=== PATIENT | female | born 1940 | race Caucasian/White ===

== ENCOUNTER → 2018-05-30 | Day surgery (SDC) | payer MEDICARE ==
[~2018-05-30] MED LIST: HYDR50TA6 PO; IV RINGERS,LACTATED 1000ML 1,000 ML IV SCH; METO100T7 PO; PRAV20TA2 PO; PROPOFOL 20 ML IV ONE
[2018-05-30 14:51] VITALS: BP 143/83
== END | disposition home or self-care (01) ==
LOC: OPS 12:20 → EDSTATUS 13:00
PROVIDERS: ATTEND Internal Medicine Gastroenterology
DX: K57.30 Diverticulosis of large intestine without perforation or abscess without bleeding (principal); K64.0 First degree hemorrhoids; I10 Essential (primary) hypertension; E78.00 Pure hypercholesterolemia, unspecified; Z82.49 Family history of ischemic heart disease and other diseases of the circulatory system; Z79.899 Other long term (current) drug therapy; Z98.890 Other specified postprocedural states
CPT/HCPCS: 45378; J2704; J7120

== ENCOUNTER 2019-09-22 23:38 | Inpatient (IN) | payer MEDICARE ==
[~2019-09-22] VITALS: Ht 167.6 cm; Wt 93.7 kg
[~2019-09-22 23:38] MED LIST changes: -IV RINGERS,LACTATED 1000ML 1,000 ML IV SCH; -PROPOFOL 20 ML IV ONE
[2019-09-23] VITALS (22 sets, daily range): BP systolic 111–194; BP diastolic 62–103
--- NOTE | 2019-09-23 00:30 | NUR ---
Prior to admission, report was received from RN at [facility] ED and patient seemed very stable--had elevated BP when she arrived but was controlled by IVP medications and patient not on any drips. Dr. Ledesma and Dr. Chadwick paged. Dr Chadwick returned page first--he is familiar with this patient because he sees her outside of the hospital. Patient condition explained to Dr. Chadwick and order received to change admit order to CVC. Dr. Ledesma then called and stated that she wanted patient to be in ICU because she planned to start a Cardene gtt. Dr. Ledesma was informed that her pressures were being controlled by IVP medications at [facility], but she stated she wanted her in ICU. Patient to be admitted as ICU.
--- NOTE | 2019-09-23 01:00 | NUR ---
Patient arrived to room 105 via EMS gurney accompanied by paramedics x2 at 0035. Patient able to stand and ambulate to bed with fairly steady gait. Patient states pain is a 6 after getting up and walking to bed but that it is much improved from earlier at [facility]. Patient attached to ICU monitors--afib on the monitor with rate in 100s-130s. SBP stable in 110s-120s. Lungs CTA, pedal and radial pulses 2+ bilaterally. Patient slightly short of breath after ambulation. Patient ambulated to toilet and voided x1--standby assist. SCDs placed on patient. Patent IV x1 present but SL at this time. Oriented patient to unit routines, call light, bed controls, tv controls, activity (supervised). Patient very pleasant-states she will be a full code at this time but that she is going to talk to her about possibly changing it to a DNR and would like to talk with renal social worker more about it. Will call for further orders.
[2019-09-23] MEDS ORDERED: DILTIAZEM HCL 125 MG in IV NORMAL SALINE 100ML 100 ML IV PRN (02:00)
--- NOTE | 2019-09-23 03:00 | NUR ---
Page sent to Dr. Ledesma at 0100 and 0130. About 20 minutes later answering service paged to ask if she had returned our page. RN was connected to Dr. Ledesma via answering service. Updated on patient condition and orders received to start Cardizem gtt at 5 mg and titrate as needed to maintain HR <100, restart home medications, get CBC and BMP in AM, keep NPO after 7 am, consult cardiology in AM (not urgent), give Hydralazine 10 mg Q6PRN for SBP>170, and given Ativan 1 mg IVP Q4H PRN for anxiety (patient was anxious at [facility] because she has never stayed in the hospital before). Will place orders and continue to monitor patient.
[2019-09-23] MEDS ORDERED: LISI-334 PO (03:21)
[2019-09-23] MEDS ORDERED: CHLO50TA PO (03:21)
[2019-09-23 08:27] LABS: CALCIUM 8.6 mg/dL (8.5-10.1); CREATININE 0.9 mg/dL (0.6-1.0); GFR 60.4
[2019-09-23 08:41] LABS: BASO # 0.1 x10^3/uL (0.0-0.2); BASO % 1 % (0-3); EOS % 0 % (0-3); HEMATOCRIT 35.1 % (36.0-47.0); HEMOGLOBIN 11.7 g/dL (12.0-15.5); LYMPH # 1.6 x10^3/uL (1.0-4.8); LYMPH % 18 % (24-48); MEAN CORPUSCULAR HEMOGLOBIN 29 pg (25-35); MEAN CORPUSCULAR HGB CONC 33 g/dL (31-37); MEAN CORPUSCULAR VOLUME 88 fL (79-100); MONO # 0.6 x10^3/uL (0.0-1.1); MONO % 6 % (0-9); NEUT % 75 % (31-73); PLATELET COUNT 216 x10^3/uL (140-400); RED CELL DISTRIBUTION WIDTH 14.1 % (11.5-14.5); WHITE BLOOD COUNT 9.3 x10^3/uL (4.0-11.0)
[2019-09-23] MEDS ORDERED: CHLORTHALIDONE 25 MG TABLET. PO SCH (09:00)
[2019-09-23] MEDS ORDERED: POTASSIUM CHLORIDE 20 MEQ TABLET.ER. PO ONE (09:15)
--- NOTE | 2019-09-23 10:24 | PDOC2 ---
ALEXANDRIA MAYBERRY GASKET SUPERVISOR 09/23/19 1024: CARDIAC CONSULT DATE OF CONSULT Date of Consult DATE: 09/23/19 TIME: 10:22 REASON FOR CONSULT Reason for Consult: AFIB Hypertension REFERRING PHYSICIAN Referring Physician: Dr. Cristal Ledesma SOURCE Source: Chart review, Patient HISTORY OF PRESENT ILLNESS HISTORY OF PRESENT ILLNESS This is a 78 to female who initially presented to [facility] secondary to chest pain. Patient reports she had significant burning, pressure sensation in her central chest that began late yesterday evening. Was associated with diaphoresis. No palpitations, dizziness, SOA, or nausea/vomiting. Pain radiated down her left arm. No exacerbating or relieving factors. Pain persisted so she came to the ED for further evaluation and treatment. Was noted with AFIB with RVR, hypertensive urgency, hypokalemia with K of 2.5, and mild troponin elevation of 0.115. Decision was made to transfer patient to [facility] for higher level of care. Patient reports pain has improved, but has not completely resolved. PAST MEDICAL HISTORY Cardiovascular: HTN, Hyperlipidemia PAST SURGICAL HISTORY Past Surgical History: Tonsillectomy FAMILY HISTORY Family History: Cancer, Heart Disease (father ), Stroke SOCIAL HISTORY Smoke: No ALCOHOL: none Drugs: None Lives: with Family ALLERGIES ALLERGIES: Coded Allergies: No Known Drug Allergies (Unverified , 05/30/18) ROS Review of System 14 point ROS conducted with pertinent positives noted above in HPI PHYSICAL EXAM General: Alert, Oriented X3, Cooperative, No acute distress HEENT: Atraumatic, Mucous membr. moist/pink Lungs: Clear to auscultation, Normal air movement Heart: Regular rate Abdomen: Soft, No tenderness Extremities: Normal pulses, Other (trace bilateral LE edema ) Skin: No significant lesion Neuro: Normal speech, Sensation intact Psych/Mental Status: Mental status NL, Mood NL MUSCULOSKELETAL: No joint tenderness, Osteoarthritic changes both hands VITALS/I&O VITALS/I&O: Vital Signs Date Time Temp Pulse Resp B/P (MAP) Pulse Ox O2 Delivery O2 Flow Rate FiO2 09/23/19 08:12 Room Air 09/23/19 08:10 98.2 72 16 158/62 (94) 96 98.2 09/23/19 03:00 2.0 I & O 09/22/19 09/22/19 09/23/19 15:00 23:00 07:00 Output Total 0 ml Balance 0 ml LABS Lab: Laboratory Tests Test 09/23/19 04:50 White Blood Count 9.3 x10^3/uL (4.0-11.0) Red Blood Count 4.00 x10^6/uL (3.50-5.40) Hemoglobin 11.7 g/dL (12.0-15.5) L Hematocrit 35.1 % (36.0-47.0) L Mean Corpuscular Volume 88 fL (79-100) Mean Corpuscular Hemoglobin 29 pg (25-35) Mean Corpuscular Hemoglobin Concent 33 g/dL (31-37) Red Cell Distribution Width 14.1 % (11.5-14.5) Platelet Count 216 x10^3/uL (140-400) Neutrophils (%) (Auto) 75 % (31-73) H Lymphocytes (%) (Auto) 18 % (24-48) L Monocytes (%) (Auto) 6 % (0-9) Eosinophils (%) (Auto) 0 % (0-3) Basophils (%) (Auto) 1 % (0-3) Neutrophils # (Auto) 7.0 x10^3/uL (1.8-7.7) Lymphocytes # (Auto) 1.6 x10^3/uL (1.0-4.8) Monocytes # (Auto) 0.6 x10^3/uL (0.0-1.1) Eosinophils # (Auto) 0.0 x10^3/uL (0.0-0.7) Basophils # (Auto) 0.1 x10^3/uL (0.0-0.2) Sodium Level 142 mmol/L (136-145) Potassium Level 3.0 mmol/L (3.5-5.1) L Chloride Level 103 mmol/L (98-107) Carbon Dioxide Level 29 mmol/L (21-32) Anion Gap 10 (6-14) Blood Urea Nitrogen 22 mg/dL (7-20) H Creatinine 0.9 mg/dL (0.6-1.0) Estimated GFR (Cockcroft-Gault) 60.4 Glucose Level 109 mg/dL (70-99) H Calcium Level 8.6 mg/dL (8.5-10.1) Laboratory Tests 09/23/19 04:50 Laboratory Tests 09/23/19 04:50 ECHOCARDIOGRAM ECHOCARDIOGRAM <Conclusion> The left ventricular systolic function is normal and the ejection fraction is within normal range. The Ejection Fraction is >55%. There is normal LV segmental wall motion. Transmitral Doppler flow pattern is Grade II-pseudonormal filling dynamics. DATE: 04/23/18 1524 STRESS TEST STRESS TEST Conclusion 1. No EKG evidence of stressed induced ischemia. 2. Nuclear imaging shows no reversible ischemia or infarct. 3. Normal left ventricular systolic function with an ejection fraction of greater than 70%. 4. Low risk Lexiscan nuclear stress test. DATE: 11/21/18 1112 ASSESSMENT/PLAN ASSESSMENT/PLAN 1. Chest pain, typical features. 2. NSTEMI; initial trop at [facility] 0.115, repeat at 4.7 3. PAFIB with RVR; converted back to SR overnight 4. Hypertensive urgency; remains elevated 5. Ascending thoracic aneurysm 4.2 cm per CTA 09/27. Repeat chest CT at outside facility yesterday morning; reportedly stable. 6. Hypokalemia Recommendations Echo to assess LV systolic function ASA, statin Metoprolol for rate control Lipids, TSH NPO Given presentation in the setting of NSTEMI, recommend cardiac catheterization with possible angioplasty. R/b/a discussed with patient and family and they are agreeable to proceed. Will add case on for later today. Supportive care Will arrange outpatient event monitor to note AFIB burden, guide therapy Cardiac catheterization noted with 3V CAD with LM involvement. Cath report to follow. Will plan to transfer to [facility] for CTS consultation. ABEL FERNANDEZ MD 09/23/19 1933: CARDIAC CONSULT ASSESSMENT/PLAN ASSESSMENT/PLAN Patient seen and examined. Agree with TIRE ASSEMBLER's assessment and plan, Cardiac cath for NSTEMI showed 3v CAD including LMCA stenosis Discussed findings with [facility] CTS Plan for transfer to [facility] after w/u for possible CABG Continue hep gtt per protocol Titrate antihypertensives for better BP control [place] 2D echo to assess LVF and r/o valvular abnormalities Thank you for your consultation ALEXANDRIA MAYBERRY APRN Sep 23, 2019 10:24 ABEL FERNANDEZ MD Sep 23, 2019 19:33
[2019-09-23] MEDS: LISINOPRIL 20 MG TABLET PO SCH (11:06)
[2019-09-23] MEDS: METOPROLOL TART IMMED RELEASE 50 MG TABLET. PO SCH (11:11)
[2019-09-23 11:13] LABS: CHOLESTEROL/HDL RATIO 2.7
[2019-09-23] MEDS: ASPIRIN ENTERIC COATED 81 MG TABLET.DR. PO SCH (11:30)
--- NOTE | 2019-09-23 12:34 | NUR ---
SS following for discharge planning. SS reviewed pt chart and discussed with pt RN. Pt is from home with spouse and is currently on room air. 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 SS will continue to follow for discharge planning.
[2019-09-23] MEDS ORDERED: IOHEXOL 300 MG/ML 100ML VIAL. ONE ×2 (13:07→14:06)
[2019-09-23] MEDS ORDERED: LIDOCAINE 1% PF 2 ML VIAL. ONE (13:07)
--- NOTE | 2019-09-23 13:32 | NUR ---
Pt left for home performance laborer with RN and tech.
[2019-09-23] MEDS ORDERED: fentaNYL PF VIAL 100 MCG/2 ML VIAL ONE (13:35)
[2019-09-23] MEDS ORDERED: NITROGLYCERIN 200 MCG/2 ML SYRINGE FOR CATH/VASC LAB. ONE (13:35)
[2019-09-23] MEDS ORDERED: VERAPAMIL 5 MG/2 ML VIAL. ONE (13:35)
[2019-09-23] MEDS ORDERED: MIDAZOLAM HCL/PF 2 MG/2 ML VIAL. ONE (13:35)
[2019-09-23] MEDS ORDERED: HEPARIN for IV BOLUS 10,000 UNIT/10 ML VIAL. ONE (13:35)
[2019-09-23] MEDS ORDERED: NITROGLYCERIN 200 MCG/2 ML SYRINGE FOR CATH/VASC LAB. IART ONE (14:15)
[2019-09-23] MEDS ORDERED: LIDOCAINE 1% PF 2 ML VIAL. INJ ONE (14:15)
[2019-09-23] MEDS ORDERED: IOHEXOL 300 MG/ML 100ML VIAL. IART ONE (14:15)
[2019-09-23] MEDS ORDERED: VERAPAMIL 5 MG/2 ML VIAL. IART ONE (14:15)
[2019-09-23] MEDS ORDERED: fentaNYL PF VIAL 100 MCG/2 ML VIAL IV ONE (14:15)
[2019-09-23] MEDS ORDERED: HEPARIN for IV BOLUS 10,000 UNIT/10 ML VIAL. IART ONE (14:15)
[2019-09-23] MEDS ORDERED: MIDAZOLAM HCL/PF 2 MG/2 ML VIAL. IV ONE (14:15)
[2019-09-23] MEDS ORDERED: CONTRAST GIVEN. MC PRN (14:30)
[2019-09-23] MEDS ORDERED: HEPARIN for IV BOLUS 10,000 UNIT/10 ML VIAL. IV PRN (14:30)
[2019-09-23] MEDS ORDERED: 0.9 % SODIUM CHLORIDE 10 ML DISP.SYRIN. IV PRN (14:30)
--- NOTE | 2019-09-23 14:36 | PDOC1 ---
History and Physical Date of Admission Date of Admission DATE: 09/23/19 TIME: 14:27 Identification/Chief Complaint Problems: (1) Chest pain Source Source: Patient History of Present Illness History of Present Illness 78 F hx of HTN and HLD to female who initially presented to [facility] secondary to chest pain. reports she had significant burning, pressure sensation in her central chest that started yesterday around 830 pm . No exacerbating or relieving factors. Pain persisted so she came to the ED for further evaluation and treatment noted with AFIB with RVR SBP 170, hypokalemia with K of 2.5, and mild troponin elevation of 0.115. patient transferred to [facility] for further care. Past Medical History Cardiovascular: HTN, Hyperlipidemia Past Surgical History Past Surgical History: Tonsillectomy Family History Family History: Cancer, Heart Disease (father ), Stroke Social History Smoke: No ALCOHOL: none Drugs: None Current Medications Current Medications Current Medications Diltiazem HCl 125 mg/Sodium Chloride 125 ml @ 5 mls/hr CONT PRN IV SEE I/O RECORD; Start 09/23/19 at 02:00 Hydralazine HCl (Apresoline Inj) 10 mg PRN Q6HRS PRN IVP ELEVATED BP, SEE COMMENTS; Start 09/23/19 at 02:00 Lorazepam (Ativan Inj) 1 mg PRN Q4HRS PRN IVP ANXIETY / AGITATION; Start at 02:00 Metoprolol Tartrate (Lopressor) 100 mg DAILY PO Last administered on 09/23/19at 11:11; Start 09/23/19 at 09:00 Lisinopril (Prinivil) 20 mg DAILY PO Last administered on 09/23/19at 11:06; Start 09/23/19 at 09:00 Chlorthalidone (Thalitone) 25 mg DAILY PO ; Start 09/23/19 at 09:00 Atorvastatin Calcium (Lipitor) 5 mg HS PO ; Start 09/23/19 at 21:00 Potassium Chloride (Klor-Con) 40 meq 1X ONCE PO ; Start 09/23/19 at 09:15; Stop 09/23/19 at 09:23; Status DC Aspirin (Ecotrin) 81 mg DAILYWBKFT PO ; Start 09/23/19 at 11:30 Lidocaine HCl (Xylocaine-Mpf 1% 2ml Vial) 2 ml STK-MED ONCE .ROUTE ; Start 09/23/19 at 13:07; Stop 09/23/19 at 13:32; Status DC Heparin Sodium/ Sodium Chloride 500 ml @ As Directed STK-MED ONCE .ROUTE ; Start 09/23/19 at 13:07; Stop 09/23/19 at 13:32; Status DC Iohexol (Omnipaque 300 Mg/ml) 100 ml STK-MED ONCE .ROUTE ; Start 09/23/19 at 13:07; Stop 09/23/19 at 13:32; Status DC Fentanyl Citrate (Fentanyl 2ml Vial) 100 mcg STK-MED ONCE .ROUTE ; Start 09/23/19 at 13:35; Stop 09/23/19 at 13:35; Status DC Midazolam HCl (Versed) 2 mg STK-MED ONCE .ROUTE ; Start 09/23/19 at 13:35; Stop 09/23/19 at 13:35; Status DC Heparin Sodium (Porcine) (Heparin Sodium) 10,000 unit STK-MED ONCE .ROUTE ; Start 09/23/19 at 13:35; Stop 09/23/19 at 13:35; Status DC Verapamil HCl (Verapamil) 5 mg STK-MED ONCE .ROUTE ; Start 09/23/19 at 13:35; Stop 09/23/19 at 13:35; Status DC Nitroglycerin (Nitroglycerin) 200 mcg STK-MED ONCE .ROUTE ; Start 09/23/19 at 13:35; Stop 09/23/19 at 13:35; Status DC Iohexol (Omnipaque 300 Mg/ml) 100 ml STK-MED ONCE .ROUTE ; Start 09/23/19 at 14:06; Stop 09/23/19 at 14:06; Status DC Nitroglycerin (Nitroglycerin) 200 mcg 1X ONCE IART Last administered on 09/23/19at 14:15; Start 09/23/19 at 14:15; Stop 09/23/19 at 14:22; Status DC Verapamil HCl (Verapamil) 2.5 mg 1X ONCE IART Last administered on 09/23/19at 14:15; Start 09/23/19 at 14:15; Stop 09/23/19 at 14:22; Status DC Heparin Sodium (Porcine) (Heparin Sodium) 2,500 unit 1X ONCE IART Last administered on 09/23/19at 14:15; Start 09/23/19 at 14:15; Stop 09/23/19 at 14:22; Status DC Heparin Sodium/ Sodium Chloride (HEPARIN for ARTERIAL LINE FLUSH) 1,000 unit 1X ONCE IART Last administered on 09/23/19at 14:15; Start 09/23/19 at 14:15; Stop 09/23/19 at 14:22; Status DC Heparin Sodium/ Sodium Chloride (HEPARIN for ARTERIAL LINE FLUSH) 1,000 unit 1X ONCE IART Last administered on 09/23/19at 14:15; Start 09/23/19 at 14:15; Stop 09/23/19 at 14:22; Status DC Midazolam HCl (Versed) 2 mg 1X ONCE IV Last administered on 09/23/19at 14:15; Start 09/23/19 at 14:15; Stop 09/23/19 at 14:22; Status DC Fentanyl Citrate (Fentanyl 2ml Vial) 100 mcg 1X ONCE IV Last administered on 09/23/19at 14:15; Start 09/23/19 at 14:15; Stop 09/23/19 at 14:22; Status DC Iohexol (Omnipaque 300 Mg/ml) 100 ml 1X ONCE IART Last administered on 09/23/19at 14:15; Start 09/23/19 at 14:15; Stop 09/23/19 at 14:22; Status DC Lidocaine HCl (Xylocaine-Mpf 1% 2ml Vial) 2 ml 1X ONCE INJ Last administered on 09/23/19at 14:15; Start 09/23/19 at 14:15; Stop 09/23/19 at 14:22; Status DC Info (CONTRAST GIVEN -- Rx MONITORING) 1 each PRN DAILY PRN MC SEE COMMENTS; Start 09/23/19 at 14:30; Stop 09/25/19 at 14:29 Active Scripts Active Reported Lisinopril 20 Mg Tablet 1 Tab PO DAILY Chlorthalidone 50 Mg Tablet 25 Mg PO DAILY Pravastatin Sodium 20 Mg Tablet 1 Tab PO HS Metoprolol Tartrate 100 Mg Tablet 1 Tab PO DAILY Allergies Allergies: Coded Allergies: No Known Drug Allergies (Unverified , 05/30/18) ROS Review of System CONSTITUTIONAL: No fever or chills EYES: No recent changes SKIN: No rash or itching CARDIOVASCULAR: No chest pain, syncope, palpitations, or edema RESPIRATORY: No SOB or cough GASTROINTESTINAL: No nausea, vomiting or abdominal pain NEUROLOGICAL: No headaches or weakness ENDOCRINE: No cold or heat intolerance GENITOURINARY: No urgency or frequency of urination MUSCULOSKELETAL: No back pain or joint pain LYMPHATICS: No enlarged lymph nodes PSYCHIATRIC: No anxiety or depression Physical Exam Physical Exam GENERAL: No apparent distress. Alert and oriented. HEENT: Head normocephalic, atraumatic. NECK: Supple LUNGS: Clear to auscultation. HEART: RRR, S1, S2 present, pulses intact ABDOMEN: Soft, positive bowel sounds. EXTREMITIES: No cyanosis or edema. NEUROLOGIC: Normal speech, normal tone PSYCHIATRIC: Normal affect, normal mood. SKIN: No ulceration. Vitals Vitals Vital Signs Date Time Temp Pulse Resp B/P (MAP) Pulse Ox O2 Delivery O2 Flow Rate FiO2 09/23/19 14:24 75 25 94 Nasal Cannula 2.0 09/23/19 13:30 98.3 190/100 (130) 98.3 Labs Labs Laboratory Tests Test 09/23/19 04:50 White Blood Count 9.3 x10^3/uL (4.0-11.0) Red Blood Count 4.00 x10^6/uL (3.50-5.40) Hemoglobin 11.7 g/dL (12.0-15.5) Hematocrit 35.1 % (36.0-47.0) Mean Corpuscular Volume 88 fL (79-100) Mean Corpuscular Hemoglobin 29 pg (25-35) Mean Corpuscular Hemoglobin Concent 33 g/dL (31-37) Red Cell Distribution Width 14.1 % (11.5-14.5) Platelet Count 216 x10^3/uL (140-400) Neutrophils (%) (Auto) 75 % (31-73) Lymphocytes (%) (Auto) 18 % (24-48) Monocytes (%) (Auto) 6 % (0-9) Eosinophils (%) (Auto) 0 % (0-3) Basophils (%) (Auto) 1 % (0-3) Neutrophils # (Auto) 7.0 x10^3/uL (1.8-7.7) Lymphocytes # (Auto) 1.6 x10^3/uL (1.0-4.8) Monocytes # (Auto) 0.6 x10^3/uL (0.0-1.1) Eosinophils # (Auto) 0.0 x10^3/uL (0.0-0.7) Basophils # (Auto) 0.1 x10^3/uL (0.0-0.2) Sodium Level 142 mmol/L (136-145) Potassium Level 3.0 mmol/L (3.5-5.1) Chloride Level 103 mmol/L (98-107) Carbon Dioxide Level 29 mmol/L (21-32) Anion Gap 10 (6-14) Blood Urea Nitrogen 22 mg/dL (7-20) Creatinine 0.9 mg/dL (0.6-1.0) Estimated GFR (Cockcroft-Gault) 60.4 Glucose Level 109 mg/dL (70-99) Calcium Level 8.6 mg/dL (8.5-10.1) Magnesium Level 2.0 mg/dL (1.8-2.4) Troponin I Quantitative 4.527 ng/mL (0.000-0.055) Triglycerides Level 69 mg/dL (0-150) Cholesterol Level 188 mg/dL (0-200) LDL Cholesterol, Calculated 105 mg/dL (0-100) VLDL Cholesterol, Calculated 14 mg/dL (0-40) Non-HDL Cholesterol Calculated 119 mg/dL (0-129) HDL Cholesterol 69 mg/dL (40-60) Cholesterol/HDL Ratio 2.7 Thyroid Stimulating Hormone (TSH) 0.865 uIU/mL (0.358-3.74) Laboratory Tests Test 09/23/19 04:50 White Blood Count 9.3 x10^3/uL (4.0-11.0) Red Blood Count 4.00 x10^6/uL (3.50-5.40) Hemoglobin 11.7 g/dL (12.0-15.5) Hematocrit 35.1 % (36.0-47.0) Mean Corpuscular Volume 88 fL (79-100) Mean Corpuscular Hemoglobin 29 pg (25-35) Mean Corpuscular Hemoglobin Concent 33 g/dL (31-37) Red Cell Distribution Width 14.1 % (11.5-14.5) Platelet Count 216 x10^3/uL (140-400) Neutrophils (%) (Auto) 75 % (31-73) Lymphocytes (%) (Auto) 18 % (24-48) Monocytes (%) (Auto) 6 % (0-9) Eosinophils (%) (Auto) 0 % (0-3) Basophils (%) (Auto) 1 % (0-3) Neutrophils # (Auto) 7.0 x10^3/uL (1.8-7.7) Lymphocytes # (Auto) 1.6 x10^3/uL (1.0-4.8) Monocytes # (Auto) 0.6 x10^3/uL (0.0-1.1) Eosinophils # (Auto) 0.0 x10^3/uL (0.0-0.7) Basophils # (Auto) 0.1 x10^3/uL (0.0-0.2) Sodium Level 142 mmol/L (136-145) Potassium Level 3.0 mmol/L (3.5-5.1) Chloride Level 103 mmol/L (98-107) Carbon Dioxide Level 29 mmol/L (21-32) Anion Gap 10 (6-14) Blood Urea Nitrogen 22 mg/dL (7-20) Creatinine 0.9 mg/dL (0.6-1.0) Estimated GFR (Cockcroft-Gault) 60.4 Glucose Level 109 mg/dL (70-99) Calcium Level 8.6 mg/dL (8.5-10.1) Magnesium Level 2.0 mg/dL (1.8-2.4) Troponin I Quantitative 4.527 ng/mL (0.000-0.055) Triglycerides Level 69 mg/dL (0-150) Cholesterol Level 188 mg/dL (0-200) LDL Cholesterol, Calculated 105 mg/dL (0-100) VLDL Cholesterol, Calculated 14 mg/dL (0-40) Non-HDL Cholesterol Calculated 119 mg/dL (0-129) HDL Cholesterol 69 mg/dL (40-60) Cholesterol/HDL Ratio 2.7 Thyroid Stimulating Hormone (TSH) 0.865 uIU/mL (0.358-3.74) VTE Prophylaxis Ordered VTE Prophylaxis Devices: Yes VTE Pharmacological Prophylaxi: Yes Assessment/Plan Assessment/Plan ASSESSMENT Chest pain NSTEMI PAFIB with RVR Hypertensive urgency Ascending thoracic aneurysm Hypokalemia PLAN check TTE ASA, statin Metoprolol for rate control LABS INCLUDING TSH AND LIPIDS NPO FOR [facility] TODAY CARDS CONSULT NOW BACK IN SR FOLLOW TROPS ANEURISM 4.2 cm per CTA 09/27. Repeat chest CT at outside facility yesterday morning; reportedly stable. can likely transfer out to tele bed later today if stable Justicifation of Admission Dx: Justifications for Admission: Justification of Admission Dx: Yes Angina: [facility] AKIN HUNTER MD Sep 23, 2019 14:36
[2019-09-23] MEDS: HEPARIN 25,000UTS/250ML PREMIX 250 ML IV PRN (14:56)
--- NOTE | 2019-09-23 15:01 | PDOC ---
MODERATE SEDATION ASSESSMENT RISKS/ALTERNATIVES Risks/Alternatives Risks and alternatives of this type of sedation and procedure discussed with: RISK/ALTERNATIVES: Patient H & P ON CHART H & P H & P on chart and reviewed for co-morbid conditions and appropriate labs. H&P ON CHART: Yes STATUS PREG STATUS ASSESSED: N/A MEDS/ALLERGIES REVIEWED Meds/Allergies Reviewed Medications and Allergies including time and route of recently administered narcotics and sedatives. MEDS/ALLERGIES REVIEWED: Yes ASA RATING ASA RATING: III AIRWAY ASSESSMENT Airway Assessment Airway patency, oral function limitations, presence of caps, crowns, dentures, partials, and ability to extend neck assessed. AIRWAY ASSESSMENT: Yes MALLAMPATI SCORE MALLAMPATI SCORE: II PRE-SEDATION ASSESSMENT PRE-SEDATION ASSESSMENT: Yes ABEL FERNANDEZ MD Sep 23, 2019 15:01
--- NOTE | 2019-09-23 15:06 | CARD ---
MR#: [id number] Date of Study: 09/23/2019 Ordering Physician: ALEXANDRIA MAYBERRY, Referring Physician: ALEXANDRIA MAYBERRY, Tech: Mercy Ryder APPROVED REPORT Technologist: Mercy Ryder Nurse: Jessica Villalta Procedure(s) performed: Left heart catheterization, selective coronary angiography via right transrad ial approach fl time: 7.6 min dose: 65 gycm2 contrast: 115 ml moderate sedation: 35 mins INDICATION The indication(s) include : non-STEMI . CSHA Clinical Frailty Scale CS Clinical Frailty Scale: Mildly Frail Heart Failure Heart Failure: No PROCEDURE NARRATIVE After explaining the risks, benefits and alternative options, informed consent was obtained from ashley ent. Patient was brought to the cardiac Veterinary Virologist and right wrist was prepped and draped in the usual fashion after confirming a positive modified Kody's test. Arterial access was obtained in the righ t radial artery and a 6 [place]ar[place]uan sheath was inserted. 6 [place] Reza and 6 [place] JL 3.5 catheters wer e used to perform selective angiography of the right and left coronary arteries. LVEDP and transaort ic gradients were measured. Patient tolerated the procedure well. Hemostasis was achieved using TR band. There were no immediate complications. The following findings were noted. FINDINGS 1. Hemodynamics: Elevated left ventricular end-diastolic pressure of 25 mmHg consistent with mild ac fe diastolic heart failure. No pullback gradient across the aortic valve. 2. Coronary angiography: a. The left main coronary artery arose from the left sinus of Valsalva, gave rise to the left anteri or descending and left circumflex arteries and showed 90% distal segment stenosis. b. The left anterior descending artery showed 30% stenosis in the midsegment and another 30% stenosi s in the mid to distal segment. c. The left circumflex artery did not show any significant stenosis. d. The right coronary artery was a large and dominant vessel arising from the right sinus of Valsalv a that showed 70% stenosis involving the ostium with dampening of the waveforms on catheter engagemen t. Conclusion Severe three-vessel coronary disease including significant left main coronary artery stenosis Recommendations Cardiothoracic surgery referral for possible coronary artery bypass surgery Signed by : Ramos Chadwick, Electronically Approved : 09/23/2019 15:05:57
--- NOTE | 2019-09-23 15:20 | NUR ---
SS following up with discharge planning. SS received request for transfer to [facility] for CTS for CABG per Dr. Chadwick. SS contacted [facility] transfer team, ; fax [phone], and made request for transfer. SS faxed clinical and demographics as requested. Packet, transfer form, and ambulance form placed on chart. SS will await acceptance decision and will proceed accordingly.
[2019-09-23] MEDS ORDERED: ACETAMINOPHEN 325 MG TABLET. PO PRN (16:15)
[2019-09-23] MEDS ORDERED: IBUPROFEN 200 MG TABLET. PO PRN (16:15)
[2019-09-23 16:16] LABS: HEMOGLOBIN 12.2 g/dL (12.0-15.5); RED BLOOD COUNT 4.18 x10^6/uL (3.50-5.40); RED CELL DISTRIBUTION WIDTH 14.2 % (11.5-14.5); WHITE BLOOD COUNT 9.8 x10^3/uL (4.0-11.0)
[2019-09-23] MEDS: hydrALAZINE 20 MG/ML VIAL. IVP PRN (16:26)
[2019-09-23 16:36] LABS: PROTHROMBIN TIME PATIENT 13.6 SEC (11.7-14.0)
--- NOTE | 2019-09-23 17:15 | NUR ---
Pt noted to have increase confusion. Moves all extremeties with equal strength. follows commands after multiple redirecting. . 1800 pt remains confused wanting to get out of here. Medications given as per orders. Son and sitting with the patient.
[2019-09-23] MEDS: POTASSIUM CHLORIDE 10MEQ 100 ML IV SCH ×2 (17:24→19:52)
--- NOTE | 2019-09-23 17:35 | RAD ---
INDICATION: Reason: pre-op CABG / Spl. Instructions: / History: COMPARISON: None. TECHNIQUE: Color, grayscale and doppler ultrasound images obtained of the carotid system bilaterally. Percent stenosis is estimated using criteria that correlates with NASCET methodology. FINDINGS: Peak systolic velocities are as follows in cm/s: Right Carotid System: CCA: 53 ICA: 80 ICA/CCA Ratio is 1.7 Left Carotid System: CCA: 49 ICA: 84 ICA/CCA Ratio 1.5 Vertebral arteries are antegrade bilaterally. Multifocal plaque is seen scattered throughout the carotid system. This causes some regions of less than 50 percent narrowing. This includes near the right carotid bulb. IMPRESSION: * Multifocal plaque without high-grade carotid stenosis. Electronically signed by: Aaron Roque MD (09/23/2019 5:32 PM) [id number]
--- NOTE | 2019-09-23 17:47 | RAD ---
Bilateral lower extremity vein mapping Clinical indications: Preoperative evaluation. FINDINGS: Duplex sonography of the greater saphenous and lesser saphenous veins of both lower extremities was performed including grayscale evaluation and color flow and waveform spectral analysis and a vein map was drawn and placed into the patient's PACS record. Right leg: Greater saphenous and lesser saphenous veins are patent. Caliber of the upper aspect of the right greater saphenous vein is 5.2 mm and the inferior aspect is 1.3 mm. Caliber of the upper aspect of the right lesser saphenous vein is 2.3 mm and the inferior aspect is 1.6 mm. Left leg: Greater saphenous and lesser saphenous veins are patent. Caliber of the upper aspect of the left greater saphenous vein is 3.8 mm and the inferior aspect is 1.5 mm. Caliber of the upper aspect of the left lesser saphenous vein is 1.5 mm and the inferior aspect is 1.2 mm. IMPRESSION: Greater saphenous and lesser saphenous vein mapping was performed prior to surgery. These veins are patent. Electronically signed by: Errol Ochoa MD (09/23/2019 5:44 PM) [id number]
--- NOTE | 2019-09-23 18:17 | NUR ---
TR band air completely out at 1800 Band left on due to pt very restless at this time.
[2019-09-23] MEDS ORDERED: HALOPERIDOL LACTATE 5 MG/ML VIAL. IVP ONE ×2 (18:30→19:00)
--- NOTE | 2019-09-23 18:40 | NUR ---
Pt still remains agitated. Dr Johnson notified and orders received. Elizabeth on unit at 1845 talked with family and orders received. 1900Pt resting a little better at this time.
[2019-09-23] MEDS ORDERED: ATORVASTATIN CALCIUM 10 MG TABLET. PO SCH (21:00)
[2019-09-24] VITALS (16 sets, daily range): BP systolic 100–179; BP diastolic 52–108
[2019-09-24 05:46] LABS: HEMOGLOBIN 11.4 g/dL (12.0-15.5); RED BLOOD COUNT 3.94 x10^6/uL (3.50-5.40); RED CELL DISTRIBUTION WIDTH 14.2 % (11.5-14.5); WHITE BLOOD COUNT 10.2 x10^3/uL (4.0-11.0)
[2019-09-24 06:43] LABS: ALBUMIN 2.8 g/dL (3.4-5.0); CALCIUM 8.2 mg/dL (8.5-10.1); CREATININE 0.8 mg/dL (0.6-1.0); GFR 69.2; TOTAL BILIRUBIN 0.6 mg/dL (0.2-1.0); TOTAL PROTEIN 5.7 g/dL (6.4-8.2)
[2019-09-24 06:45] LABS: POTASSIUM 2.6 mmol/L (3.5-5.1)
[2019-09-24 07:21] LABS: BILIRUBIN,URINE SMALL (NEG); CLARITY,URINE CLEAR; COLOR,URINE AMBER; NITRITE,URINE NEGATIVE (NEG); PROTEIN,URINE NEGATIVE (NEG-TRACE)
--- NOTE | 2019-09-24 07:42 | CARD ---
MR#: [id number] Date of Study: 09/23/2019 Ordering Physician: ALEXANDRIA MAYBERRY, Referring Physician: ALEXANDRIA MAYBERRY, Tech: Irene Hughes CHRIS APPROVED REPORT EXAM: Two-dimensional and M-mode echocardiogram with Doppler and color Doppler. Other Information Quality : Good INDICATION Acute Coronary Syndrome 2D DIMENSIONS RVDd2.9 (2.9-3.5cm)Left Atrium(2D)3.7 (1.6-4.0cm) IVSd1.1 (0.7-1.1cm)Aortic Root(2D)2.4 (2.0-3.7cm) LVDd5.2 (3.9-5.9cm)LVOT Diameter2.1 (1.8-2.4cm) PWd1.0 (0.7-1.1cm)LVDs4.4 (2.5-4.0cm) FS (%) 16.0 %SV44.2 ml LVEF(%)33.4 (>50%) M-Mode DIMENSIONS Aortic Cusp Exc1.83 (1.5-2.0cm) Aortic Valve AoV Peak Ethan.115.8cm/sAoV VTI23.9cm AO Peak GR.5.4mmHgLVOT VTI 22.47cm AO Mean GR.3mmHgAVA (VTI)3.30cm2 Mitral Valve MV E Cyugnmtt807.8cm/sMV DECEL MZBI302rc MV A Gbefsori562.4cm/sE/A Ratio1.0 TDI Lateral E' P. V4.12cm/sMedial E' P. V5.53cm/s E/Lateral E'28.6E/Medial E'21.3 Pulmonary Vein S1 Fextkptv50.8cm/sS2 Nzigvlpz56.80cm/s D2 Xgjndxpa42.8cm/s LEFT VENTRICLE The left ventricle is normal size. There is normal left ventricular wall thickness. Severe hypokinesi s of mid to distal anteroseptal and septal winston. The ejection fraction is estimated at 45%. Transmit ral Doppler flow pattern is Grade II-pseudonormal filling dynamics. RIGHT VENTRICLE The right ventricle is normal size. The right ventricular systolic function is normal. ATRIA The left atrium size is normal. The right atrium size is normal. The interatrial septum is intact wit h no evidence for an atrial septal defect or patent foramen ovale as noted on 2-D or Doppler imaging. AORTIC VALVE The aortic valve is mildly thickened but opens well. Doppler and Color Flow revealed no significant a ortic regurgitation. There is no significant aortic valvular stenosis. MITRAL VALVE The mitral valve is calcified but opens well. Mitral annular calcification is mild. There is no evide nce of mitral valve prolapse. There is no mitral valve stenosis. Doppler and Color-flow revealed mild mitral regurgitation. TRICUSPID VALVE The tricuspid valve is normal in structure and function. Doppler and Color Flow revealed no tricuspid valve regurgitation noted. There is no tricuspid valve stenosis. PULMONIC VALVE The pulmonic valve is not well visualized. Doppler and Color Flow revealed no pulmonic valvular regur gitation. There is no pulmonic valvular stenosis. GREAT VESSELS The aortic root is normal in size. The ascending aorta is moderately dilated at 4.0 cm. The IVC is no rmal in size and collapses >50% with inspiration. PERICARDIAL EFFUSION There is no evidence of significant pericardial effusion. Critical Notification Critical Value: No <Conclusion> Severe hypokinesis of mid to distal anteroseptal and septal winston. The ejection fraction is estimated at 45%. Doppler and Color-flow revealed mild mitral regurgitation. There is no evidence of significant pericardial effusion. Signed by : Ramos Chadwick, Electronically Approved : 09/24/2019 07:41:55
[2019-09-24 07:47] LABS: BACTERIA,URINE MODERATE /HPF (0-FEW); RBC,URINE 0 /HPF (0-2); SQUAMOUS EPITHELIAL CELL,UR FEW /LPF
[2019-09-24] MEDS: ASPIRIN ENTERIC COATED 81 MG TABLET.DR. PO SCH (08:00)
[2019-09-24] MEDS: LISINOPRIL 20 MG TABLET PO SCH (09:00)
[2019-09-24] MEDS: METOPROLOL TART IMMED RELEASE 50 MG TABLET. PO SCH (09:00)
[2019-09-24] MEDS: hydrALAZINE 20 MG/ML VIAL. IVP PRN (10:22)
[2019-09-24] MEDS: POTASSIUM CHLORIDE 10MEQ 100 ML IV SCH ×5 (10:31→15:42)
--- NOTE | 2019-09-24 12:57 | RAD ---
CT HEAD INDICATION: Altered mental status COMPARISON: None Available. Exposure: One or more of the following individualized dose reduction techniques were utilized for this examination: 1. Automated exposure control 2. Adjustment of the mA and/or kV according to patient size 3. Use of iterative reconstruction technique TECHNIQUE: 5 mm contiguous axial images were obtained from the skull base to the vertex in both bone and soft tissue algorithm. FINDINGS: No abnormal attenuation within the brain parenchyma. No evidence of acute intracranial hemorrhage. No extra-axial fluid collections. No mass effect or midline shift. Ventricular size is appropriate. Basal cisterns are patent. No fractures identified.Loo-white differentiation is preserved.Globes and orbits are within normal limits. Moderate mucosal thickening identified in the bilateral ethmoidal sinuses and right maxillary sinus. Mild mucosal thickening left maxillary sinus. IMPRESSION: 1. No acute intracranial findings. 2. Sinus disease. Electronically signed by: Harrison Chavez MD (09/24/2019 12:54 PM) [id number]
--- NOTE | 2019-09-24 13:13 | PDOC2 ---
NEUROLOGY CONSULT Date of Admission Date of Admission DATE: 09/24/19 TIME: 13:01 Reason for Consult Reason for Consult: Altered mental status Referring Physician Referring Physician: Dr. Reina Source Source: Caregiver (Daughter and ), Chart review History of Present Illness History of Present Illness The patient is a 78-year-old right-handed female admitted from [facility] yesterday with chest pain, found a have myocardial infarction and triple vessel coronary artery disease on her cardiac cath. She also had atrial fibrillation and rapid particular response. After the heart cath, she was observed to have agitation and confusion. She has been given some sedation. There's no prior history of stroke, seizure, or head injury. At baseline the patient has normal cognition, does the shopping, cooking, cleaning, and finances for her household. Past Medical History Cardiovascular: AFIB, CAD, CHF, HTN, Hyperlipidemia Family History Family History: CVA Social History Social History , no alcohol or tobacco Current Medications Current Medications Current Medications Diltiazem HCl 125 mg/Sodium Chloride 125 ml @ 5 mls/hr CONT PRN IV SEE I/O RECORD; Start 09/23/19 at 02:00 Hydralazine HCl (Apresoline Inj) 10 mg PRN Q6HRS PRN IVP ELEVATED BP, SEE COMMENTS Last administered on 09/24/19at 10:22; Start 09/23/19 at 02:00 Lorazepam (Ativan Inj) 1 mg PRN Q4HRS PRN IVP ANXIETY / AGITATION Last administered on 09/23/19at 17:57; Start 09/23/19 at 02:00; Stop 09/23/19 at 19:46; Status DC Metoprolol Tartrate (Lopressor) 100 mg DAILY PO Last administered on 09/23/19at 11:11; Start 09/23/19 at 09:00 Lisinopril (Prinivil) 20 mg DAILY PO Last administered on 09/23/19at 11:06; Start 09/23/19 at 09:00 Chlorthalidone (Thalitone) 25 mg DAILY PO ; Start 09/23/19 at 09:00; Stop 09/24/19 at 09:22; Status DC Atorvastatin Calcium (Lipitor) 5 mg HS PO ; Start 09/23/19 at 21:00 Potassium Chloride (Klor-Con) 40 meq 1X ONCE PO ; Start 09/23/19 at 09:15; Stop 09/23/19 at 09:23; Status DC Aspirin (Ecotrin) 81 mg DAILYWBKFT PO Last administered on 09/23/19at 11:30; Start 09/23/19 at 11:30 Lidocaine HCl (Xylocaine-Mpf 1% 2ml Vial) 2 ml STK-MED ONCE .ROUTE ; Start 09/23/19 at 13:07; Stop 09/23/19 at 13:32; Status DC Heparin Sodium/ Sodium Chloride 500 ml @ As Directed STK-MED ONCE .ROUTE ; Start 09/23/19 at 13:07; Stop 09/23/19 at 13:32; Status DC Iohexol (Omnipaque 300 Mg/ml) 100 ml STK-MED ONCE .ROUTE ; Start 09/23/19 at 13:07; Stop 09/23/19 at 13:32; Status DC Fentanyl Citrate (Fentanyl 2ml Vial) 100 mcg STK-MED ONCE .ROUTE ; Start 09/23/19 at 13:35; Stop 09/23/19 at 13:35; Status DC Midazolam HCl (Versed) 2 mg STK-MED ONCE .ROUTE ; Start 09/23/19 at 13:35; Stop 09/23/19 at 13:35; Status DC Heparin Sodium (Porcine) (Heparin Sodium) 10,000 unit STK-MED ONCE .ROUTE ; Start 09/23/19 at 13:35; Stop 09/23/19 at 13:35; Status DC Verapamil HCl (Verapamil) 5 mg STK-MED ONCE .ROUTE ; Start 09/23/19 at 13:35; Stop 09/23/19 at 13:35; Status DC Nitroglycerin (Nitroglycerin) 200 mcg STK-MED ONCE .ROUTE ; Start 09/23/19 at 13:35; Stop 09/23/19 at 13:35; Status DC Iohexol (Omnipaque 300 Mg/ml) 100 ml STK-MED ONCE .ROUTE ; Start 09/23/19 at 14:06; Stop 09/23/19 at 14:06; Status DC Nitroglycerin (Nitroglycerin) 200 mcg 1X ONCE IART Last administered on 09/23/19at 14:15; Start 09/23/19 at 14:15; Stop 09/23/19 at 14:22; Status DC Verapamil HCl (Verapamil) 2.5 mg 1X ONCE IART Last administered on 09/23/19at 14:15; Start 09/23/19 at 14:15; Stop 09/23/19 at 14:22; Status DC Heparin Sodium (Porcine) (Heparin Sodium) 2,500 unit 1X ONCE IART Last administered on 09/23/19at 14:15; Start 09/23/19 at 14:15; Stop 09/23/19 at 14:22; Status DC Heparin Sodium/ Sodium Chloride (HEPARIN for ARTERIAL LINE FLUSH) 1,000 unit 1X ONCE IART Last administered on 09/23/19at 14:15; Start 09/23/19 at 14:15; Stop 09/23/19 at 14:22; Status DC Heparin Sodium/ Sodium Chloride (HEPARIN for ARTERIAL LINE FLUSH) 1,000 unit 1X ONCE IART Last administered on 09/23/19at 14:15; Start 09/23/19 at 14:15; Stop 09/23/19 at 14:22; Status DC Midazolam HCl (Versed) 2 mg 1X ONCE IV Last administered on 09/23/19at 14:15; Start 09/23/19 at 14:15; Stop 09/23/19 at 14:22; Status DC Fentanyl Citrate (Fentanyl 2ml Vial) 100 mcg 1X ONCE IV Last administered on 09/23/19at 14:15; Start 09/23/19 at 14:15; Stop 09/23/19 at 14:22; Status DC Iohexol (Omnipaque 300 Mg/ml) 100 ml 1X ONCE IART Last administered on 09/23/19at 14:15; Start 09/23/19 at 14:15; Stop 09/23/19 at 14:22; Status DC Lidocaine HCl (Xylocaine-Mpf 1% 2ml Vial) 2 ml 1X ONCE INJ Last administered on 09/23/19at 14:15; Start 09/23/19 at 14:15; Stop 09/23/19 at 14:22; Status DC Info (CONTRAST GIVEN -- Rx MONITORING) 1 each PRN DAILY PRN MC SEE COMMENTS; Start 09/23/19 at 14:30; Stop 09/25/19 at 14:29 Heparin Sodium/ Dextrose 250 ml @ 10 mls/hr CONT PRN IV PER PROTOCOL Last administered on 09/23/19at 14:56; Start 09/23/19 at 14:30 Heparin Sodium (Porcine) (Heparin Sodium) 2,500 unit PRN Q6HRS PRN IV FOR UFH LEVEL LESS THAN 0.2; Start 09/23/19 at 14:30 Sodium Chloride (Normal Saline Flush) 3 ml QSHIFT PRN IV AFTER MEDS AND BLOOD DRAWS; Start 09/23/19 at 14:30 Ibuprofen (Motrin) 200 mg PRN Q6HRS PRN PO INFLAMMATION Last administered on 09/23/19at 16:18; Start 09/23/19 at 16:15 Acetaminophen (Tylenol) 650 mg PRN Q6HRS PRN PO MILD PAIN 1-3; Start 09/23/19 at 16:15 Potassium Chloride/Water 100 ml @ 100 mls/hr Q1H IV Last administered on 09/23/19at 19:52; Start 09/23/19 at 17:00; Stop 09/23/19 at 18:59; Status DC Haloperidol Lactate (Haldol Inj) 5 mg 1X ONCE IVP Last administered on 09/23/19at 19:00; Start 09/23/19 at 18:30; Stop 09/23/19 at 18:31; Status DC Lorazepam (Ativan Inj) 2 mg 1X ONCE IVP Last administered on 09/23/19at 19:01; Start 09/23/19 at 19:00; Stop 09/23/19 at 19:02; Status DC Haloperidol Lactate (Haldol Inj) 2 mg 1X ONCE IVP Last administered on 09/23/19at 19:01; Start 09/23/19 at 19:00; Stop 09/23/19 at 19:02; Status DC Lorazepam (Ativan Inj) 2 mg PRN Q2HRS PRN IVP ANXIETY / AGITATION Last administered on 09/24/19at 01:18; Start 09/23/19 at 19:45 Potassium Chloride/Water 100 ml @ 100 mls/hr Q1H IV Last administered on 09/24/19at 11:44; Start 09/24/19 at 11:00; Stop 09/24/19 at 16:59 Active Scripts Active Reported Lisinopril 20 Mg Tablet 1 Tab PO DAILY Chlorthalidone 50 Mg Tablet 25 Mg PO DAILY Pravastatin Sodium 20 Mg Tablet 1 Tab PO HS Metoprolol Tartrate 100 Mg Tablet 1 Tab PO DAILY Allergies Allergies: Coded Allergies: No Known Drug Allergies (Unverified , 05/30/18) ROS Review of System Negative for fever, chills, weight loss, shortness of breath, chest pain, indigestion, hematochezia, melena, and dysuria. Full 14-point review of systems is negative. Physical Exam Physical Examination General: Well-developed, well-nourished white female in no acute distress HEENT: Normocephalic andatraumatic. Tympanic membranes clear.Temporal arteriespulsatile and nontender.Fundoscopic exam unremarkable Neck: Supple without bruit, no meningismus Musculoskeletal: Stability:see neurologic. Gait exam:see neurologic. Tone:see neurolo gic.Strength:see neurologic. Neurological: Mental Status: orientation, memory, attention span/concentration, language, fund of knowledge: She moans some replies, does not follow commands, sleepy. Cranial Nerves:Pupils equal and reactive to light, extraocular movements areintact,There is no facial asymmetry. Vestibulo-ocular reflex is intact. All other cranial related problems are negative except as mentioned before.Reflexes:2+ and symmetric with flexor plantar responses. Motor: moves all extremities spontaneously, I question if she moves a little bit less on the right arm. Coordination and gait: not cooperative. Sensory: not cooperative. Vitals VITALS Vital Signs Date Time Temp Pulse Resp B/P (MAP) Pulse Ox O2 Delivery O2 Flow Rate FiO2 09/24/19 12:00 Room Air 09/24/19 12:00 98.9 93 26 144/98 (113) 100 98.9 09/23/19 18:00 2.0 Labs Labs Laboratory Tests Test 09/23/19 04:50 09/23/19 13:55 09/23/19 16:55 09/23/19 21:20 White Blood Count 9.3 x10^3/uL (4.0-11.0) 9.8 x10^3/uL (4.0-11.0) Red Blood Count 4.00 x10^6/uL (3.50-5.40) 4.18 x10^6/uL (3.50-5.40) Hemoglobin 11.7 g/dL (12.0-15.5) 12.2 g/dL (12.0-15.5) Hematocrit 35.1 % (36.0-47.0) 36.0 % (36.0-47.0) Mean Corpuscular Volume 88 fL (79-100) 86 fL (79-100) Mean Corpuscular Hemoglobin 29 pg (25-35) 29 pg (25-35) Mean Corpuscular Hemoglobin Concent 33 g/dL (31-37) 34 g/dL (31-37) Red Cell Distribution Width 14.1 % (11.5-14.5) 14.2 % (11.5-14.5) Platelet Count 216 x10^3/uL (140-400) 240 x10^3/uL (140-400) Neutrophils (%) (Auto) 75 % (31-73) Lymphocytes (%) (Auto) 18 % (24-48) Monocytes (%) (Auto) 6 % (0-9) Eosinophils (%) (Auto) 0 % (0-3) Basophils (%) (Auto) 1 % (0-3) Neutrophils # (Auto) 7.0 x10^3/uL (1.8-7.7) Lymphocytes # (Auto) 1.6 x10^3/uL (1.0-4.8) Monocytes # (Auto) 0.6 x10^3/uL (0.0-1.1) Eosinophils # (Auto) 0.0 x10^3/uL (0.0-0.7) Basophils # (Auto) 0.1 x10^3/uL (0.0-0.2) Sodium Level 142 mmol/L (136-145) Potassium Level 3.0 mmol/L (3.5-5.1) Chloride Level 103 mmol/L (98-107) Carbon Dioxide Level 29 mmol/L (21-32) Anion Gap 10 (6-14) Blood Urea Nitrogen 22 mg/dL (7-20) Creatinine 0.9 mg/dL (0.6-1.0) Estimated GFR (Cockcroft-Gault) 60.4 Glucose Level 109 mg/dL (70-99) Calcium Level 8.6 mg/dL (8.5-10.1) Magnesium Level 2.0 mg/dL (1.8-2.4) Troponin I Quantitative 4.527 ng/mL (0.000-0.055) Triglycerides Level 69 mg/dL (0-150) Cholesterol Level 188 mg/dL (0-200) LDL Cholesterol, Calculated 105 mg/dL (0-100) VLDL Cholesterol, Calculated 14 mg/dL (0-40) Non-HDL Cholesterol Calculated 119 mg/dL (0-129) HDL Cholesterol 69 mg/dL (40-60) Cholesterol/HDL Ratio 2.7 Thyroid Stimulating Hormone (TSH) 0.865 uIU/mL (0.358-3.74) Prothrombin Time 13.6 SEC (11.7-14.0) Prothromb Time International Ratio 1.1 (0.8-1.1) Coronavirus (COVID-19)(PCR) Negative (NEGATIVE) Heparin Anti-Xa Act, Unfractionated 0.23 IU/mL (0.30-0.70) Test 09/24/19 05:05 09/24/19 06:10 09/24/19 10:53 White Blood Count 10.2 x10^3/uL (4.0-11.0) Red Blood Count 3.94 x10^6/uL (3.50-5.40) Hemoglobin 11.4 g/dL (12.0-15.5) Hematocrit 34.0 % (36.0-47.0) Mean Corpuscular Volume 86 fL (79-100) Mean Corpuscular Hemoglobin 29 pg (25-35) Mean Corpuscular Hemoglobin Concent 33 g/dL (31-37) Red Cell Distribution Width 14.2 % (11.5-14.5) Platelet Count 211 x10^3/uL (140-400) Heparin Anti-Xa Act, Unfractionated 0.40 IU/mL (0.30-0.70) 0.65 IU/mL (0.30-0.70) Sodium Level 138 mmol/L (136-145) Potassium Level 2.6 mmol/L (3.5-5.1) Chloride Level 102 mmol/L (98-107) Carbon Dioxide Level 29 mmol/L (21-32) Anion Gap 7 (6-14) Blood Urea Nitrogen 16 mg/dL (7-20) Creatinine 0.8 mg/dL (0.6-1.0) Estimated GFR (Cockcroft-Gault) 69.2 BUN/Creatinine Ratio 20 (6-20) Glucose Level 103 mg/dL (70-99) Calcium Level 8.2 mg/dL (8.5-10.1) Total Bilirubin 0.6 mg/dL (0.2-1.0) Aspartate Amino Transf (AST/SGOT) 42 U/L (15-37) Alanine Aminotransferase (ALT/SGPT) 27 U/L (14-59) Alkaline Phosphatase 62 U/L (46-116) Total Protein 5.7 g/dL (6.4-8.2) Albumin 2.8 g/dL (3.4-5.0) Albumin/Globulin Ratio 1.0 (1.0-1.7) Urine Collection Type Unknown Urine Color Rachel Urine Clarity Clear Urine pH 7.0 (<5.0-8.0) Urine Specific Bannister >=1.030 (1.000-1.030) Urine Protein Negative mg/dL (NEG-TRACE) Urine Glucose (UA) Negative mg/dL (NEG) Urine Ketones (Stick) Negative mg/dL (NEG) Urine Blood Negative (NEG) Urine Nitrite Negative (NEG) Urine Bilirubin Small (NEG) Urine Urobilinogen Dipstick 1.0 mg/dL (0.2 mg/dL) Urine Leukocyte Esterase Small (NEG) Urine RBC 0 /HPF (0-2) Urine WBC 5-10 /HPF (0-4) Urine Squamous Epithelial Cells Few /LPF Urine Bacteria Moderate /HPF (0-FEW) Laboratory Tests Test 09/23/19 13:55 09/23/19 16:55 09/23/19 21:20 09/24/19 05:05 White Blood Count 9.8 x10^3/uL (4.0-11.0) 10.2 x10^3/uL (4.0-11.0) Red Blood Count 4.18 x10^6/uL (3.50-5.40) 3.94 x10^6/uL (3.50-5.40) Hemoglobin 12.2 g/dL (12.0-15.5) 11.4 g/dL (12.0-15.5) Hematocrit 36.0 % (36.0-47.0) 34.0 % (36.0-47.0) Mean Corpuscular Volume 86 fL (79-100) 86 fL (79-100) Mean Corpuscular Hemoglobin 29 pg (25-35) 29 pg (25-35) Mean Corpuscular Hemoglobin Concent 34 g/dL (31-37) 33 g/dL (31-37) Red Cell Distribution Width 14.2 % (11.5-14.5) 14.2 % (11.5-14.5) Platelet Count 240 x10^3/uL (140-400) 211 x10^3/uL (140-400) Prothrombin Time 13.6 SEC (11.7-14.0) Prothromb Time International Ratio 1.1 (0.8-1.1) Coronavirus (COVID-19)(PCR) Negative (NEGATIVE) Heparin Anti-Xa Act, Unfractionated 0.23 IU/mL (0.30-0.70) 0.40 IU/mL (0.30-0.70) Sodium Level 138 mmol/L (136-145) Potassium Level 2.6 mmol/L (3.5-5.1) Chloride Level 102 mmol/L (98-107) Carbon Dioxide Level 29 mmol/L (21-32) Anion Gap 7 (6-14) Blood Urea Nitrogen 16 mg/dL (7-20) Creatinine 0.8 mg/dL (0.6-1.0) Estimated GFR (Cockcroft-Gault) 69.2 BUN/Creatinine Ratio 20 (6-20) Glucose Level 103 mg/dL (70-99) Calcium Level 8.2 mg/dL (8.5-10.1) Total Bilirubin 0.6 mg/dL (0.2-1.0) Aspartate Amino Transf (AST/SGOT) 42 U/L (15-37) Alanine Aminotransferase (ALT/SGPT) 27 U/L (14-59) Alkaline Phosphatase 62 U/L (46-116) Total Protein 5.7 g/dL (6.4-8.2) Albumin 2.8 g/dL (3.4-5.0) Albumin/Globulin Ratio 1.0 (1.0-1.7) Test 09/24/19 06:10 09/24/19 10:53 Urine Collection Type Unknown Urine Color Rachel Urine Clarity Clear Urine pH 7.0 (<5.0-8.0) Urine Specific Bannister >=1.030 (1.000-1.030) Urine Protein Negative mg/dL (NEG-TRACE) Urine Glucose (UA) Negative mg/dL (NEG) Urine Ketones (Stick) Negative mg/dL (NEG) Urine Blood Negative (NEG) Urine Nitrite Negative (NEG) Urine Bilirubin Small (NEG) Urine Urobilinogen Dipstick 1.0 mg/dL (0.2 mg/dL) Urine Leukocyte Esterase Small (NEG) Urine RBC 0 /HPF (0-2) Urine WBC 5-10 /HPF (0-4) Urine Squamous Epithelial Cells Few /LPF Urine Bacteria Moderate /HPF (0-FEW) Heparin Anti-Xa Act, Unfractionated 0.65 IU/mL (0.30-0.70) Images Images CT HEAD INDICATION: Altered mental status COMPARISON: None Available. Exposure: One or more of the following individualized dose reduction techniques were utilized for this examination: 1. Automated exposure control 2. Adjustment of the mA and/or kV according to patient size 3. Use of iterative reconstruction technique TECHNIQUE: 5 mm contiguous axial images were obtained from the skull base to the vertex in both bone and soft tissue algorithm. FINDINGS: No abnormal attenuation within the brain parenchyma. No evidence of acute intracranial hemorrhage. No extra-axial fluid collections. No mass effect or midline shift. Ventricular size is appropriate. Basal cisterns are patent. No fractures identified.Loo-white differentiation is preserved.Globes and orbits are within normal limits. Moderate mucosal thickening identified in the bilateral ethmoidal sinuses and right maxillary sinus. Mild mucosal thickening left maxillary sinus. IMPRESSION: 1. No acute intracranial findings. 2. Sinus disease. Assessment/Plan Assessment/Plan Impression: Metabolic encephalopathy, possible prolonged sedation effect. I wonder about a left hemisphere stroke, did not show on CT though, and patient continues to improve Recommendation: Okay to transfer to [facility] for CABG Consider followup CT or brain MRI Discussed with daughter, Thank you for letting me help with the patient's care. MICHELL KIDD MD Sep 24, 2019 13:13
--- NOTE | 2019-09-24 15:16 | PDOC ---
ALEXANDRIA MAYBERRY AIR DIRECTOR 09/24/19 1516: CARDIO Progress Notes Date and Time Date of Service 09/24/19 Time of Evaluation 1120 Subjective Subjective: No Chest Pain, No shortness of breath Comments: confused, agitated yesterday evening. Given Ativan overnight, drowsy now Vitals Vitals Vital Signs Date Time Temp Pulse Resp B/P (MAP) Pulse Ox O2 Delivery O2 Flow Rate FiO2 09/24/19 15:00 93 32 165/108 (127) 97 Room Air 09/24/19 12:00 98.9 98.9 09/23/19 18:00 2.0 Weight Weight [ ] Input and Output Intake and Output Intake and Output 09/24/19 07:00 Intake Total 164 ml Output Total 1250 ml Balance -1086 ml Intake IV Total 164 ml Output Urine Total 1250 ml # Voids 2 Laboratory Labs Laboratory Tests Test 09/23/19 16:55 09/23/19 21:20 09/24/19 05:05 09/24/19 06:10 Coronavirus (COVID-19)(PCR) Negative (NEGATIVE) Heparin Anti-Xa Act, Unfractionated 0.23 IU/mL (0.30-0.70) 0.40 IU/mL (0.30-0.70) White Blood Count 10.2 x10^3/uL (4.0-11.0) Red Blood Count 3.94 x10^6/uL (3.50-5.40) Hemoglobin 11.4 g/dL (12.0-15.5) Hematocrit 34.0 % (36.0-47.0) Mean Corpuscular Volume 86 fL (79-100) Mean Corpuscular Hemoglobin 29 pg (25-35) Mean Corpuscular Hemoglobin Concent 33 g/dL (31-37) Red Cell Distribution Width 14.2 % (11.5-14.5) Platelet Count 211 x10^3/uL (140-400) Sodium Level 138 mmol/L (136-145) Potassium Level 2.6 mmol/L (3.5-5.1) Chloride Level 102 mmol/L (98-107) Carbon Dioxide Level 29 mmol/L (21-32) Anion Gap 7 (6-14) Blood Urea Nitrogen 16 mg/dL (7-20) Creatinine 0.8 mg/dL (0.6-1.0) Estimated GFR (Cockcroft-Gault) 69.2 BUN/Creatinine Ratio 20 (6-20) Glucose Level 103 mg/dL (70-99) Calcium Level 8.2 mg/dL (8.5-10.1) Total Bilirubin 0.6 mg/dL (0.2-1.0) Aspartate Amino Transf (AST/SGOT) 42 U/L (15-37) Alanine Aminotransferase (ALT/SGPT) 27 U/L (14-59) Alkaline Phosphatase 62 U/L (46-116) Total Protein 5.7 g/dL (6.4-8.2) Albumin 2.8 g/dL (3.4-5.0) Albumin/Globulin Ratio 1.0 (1.0-1.7) Urine Collection Type Unknown Urine Color Rachel Urine Clarity Clear Urine pH 7.0 (<5.0-8.0) Urine Specific [place] >=1.030 (1.000-1.030) Urine Protein Negative mg/dL (NEG-TRACE) Urine Glucose (UA) Negative mg/dL (NEG) Urine Ketones (Stick) Negative mg/dL (NEG) Urine Blood Negative (NEG) Urine Nitrite Negative (NEG) Urine Bilirubin Small (NEG) Urine Urobilinogen Dipstick 1.0 mg/dL (0.2 mg/dL) Urine Leukocyte Esterase Small (NEG) Urine RBC 0 /HPF (0-2) Urine WBC 5-10 /HPF (0-4) Urine Squamous Epithelial Cells Few /LPF Urine Bacteria Moderate /HPF (0-FEW) Test 09/24/19 10:53 Heparin Anti-Xa Act, Unfractionated 0.65 IU/mL (0.30-0.70) Physical Exam Chest: Symmetric LUNGS: Clear to Auscultation Heart: S1S2, RRR Abdomen: Soft N/T Extremities: No Edema Neurology: alert, other (drowsy ) Assessment Assessment 1. 3V CAD with LM involvement; Case d/w [facility] CTS team. Plans to transfer for possible CABG 2. NSTEMI; highest 4.7. Treated with heparin gtt 3. PAFIB with RVR; maintaining SR. On BB 4. Hypertensive urgency; improved 5. Hyperlipidemia; increase statin to 40mg 6. Ascending thoracic aneurysm 4.2 cm per CTA 09/27. Repeat chest CT at outside facility yesterday morning; reportedly stable. 7. Hypokalemia; replaced. Check Mg and replace as warranted. 8. Metabolic encephalopathy; neuro consulted. CT head negative. [place] to be due to sedation. Improving. Cardiac catheterization noted with 3V CAD with LM involvement. Cath report to follow. Will plan to transfer to [facility] for CTS consultation. Patient seen and examined. Agree with REHABILITATION CASEWORKER's assessment and plan, Cardiac cath for NSTEMI showed 3v CAD including LMCA stenosis Discussed findings with [facility] CTS Plan for transfer to [facility] after w/u for possible CABG Continue hep gtt per protocol Titrate antihypertensives for better BP control [place] 2D echo to assess LVF and r/o valvular abnormalities Thank you for your consultation Justicifation of Admission Dx: Justifications for Admission: Justification of Admission Dx: Yes Angina: Symp at Rest ABEL FERNANDEZ MD 09/24/192131: CARDIO Progress Notes Assessment Assessment Patient seen and examined. Agree with REHABILITATION CASEWORKER's assessment and plan. Mental status changes prob from sedatives, improved from this morning Tele did not show any significant arrhythmias Cath yesterday showed 3V CAD including significant LMCA stenosis 2D echo showed EF 45% Transfer to [facility] for CABG ALEXANDRIA MAYBERRY APRN Sep 24, 2019 15:16 ABEL FERNANDEZ MD Sep 24, 2019 21:32
--- NOTE | 2019-09-24 15:25 | NUR ---
SS following up with discharge planning. Pt COVID19 negative. Pt accepted at [facility]. Bed#ICU22. Report number for RN, Charli, . Accepting physician Dr. Hagen. Pt will discharge today and go to [facility] at 1545 vis [facility] ambulance. Packet, ambulance form, and transfer form on the chart. Pt, pt's RN, and pt's family notified.
[2019-09-24] MEDS: HEPARIN 25,000UTS/250ML PREMIX 250 ML IV PRN (15:43)
--- NOTE | 2019-09-24 16:38 | PDOC ---
PROGRESS NOTES Chief Complaint Chief Complaint ASSESSMENT 3V CAD with LM involvement NSTEMI Metabolic encephalopathy secondary to sedation PAFIB with RVR Hypertensive urgency; improved Hyperlipidemia Ascending thoracic aneurysm 4.2 cm per CTA 09/27. Repeat chest CT at outside facility yesterday morning; reportedly stable. Hypokalemia PLAN: needs eval for cabg. cards assisting wit hthis peak trop 4.7 HEPARIN DRIP continue BB statin [address] head negative confusion likely related to sedation Cardiac catheterization noted with 3V CAD with LM involvement. Cath report to follow. Will plan to transfer to [facility] for CTS consultation. Patient seen and examined. Agree with POLICY MANAGER's assessment and plan, Cardiac cath for NSTEMI showed 3v CAD including LMCA stenosis Discussed findings with [facility] CTS Plan for transfer to [facility] after w/u for possible CABG Continue hep gtt per protocol Titrate antihypertensives for better BP control [place] 2D echo to assess LVF and r/o valvular abnormalities History of Present Illness History of Present Illness less aggitated this AM. still sedated. family at bedside and updated on plan awaiting eval for cabg Vitals Vitals Vital Signs Date Time Temp Pulse Resp B/P (MAP) Pulse Ox O2 Delivery O2 Flow Rate FiO2 09/24/19 15:00 93 32 165/108 (127) 97 Room Air 09/24/19 12:00 98.9 98.9 09/23/19 18:00 2.0 Physical Exam General: Alert, Oriented X3, Cooperative, No acute distress Heart: Regular rate Abdomen: Soft, No tenderness Extremities: Normal pulses, Other (trace bilateral LE edema ) Skin: No significant lesion Labs LABS Laboratory Tests Test 09/23/19 16:55 09/23/19 21:20 09/24/19 05:05 09/24/19 06:10 Coronavirus (COVID-19)(PCR) Negative (NEGATIVE) Heparin Anti-Xa Act, Unfractionated 0.23 IU/mL (0.30-0.70) 0.40 IU/mL (0.30-0.70) White Blood Count 10.2 x10^3/uL (4.0-11.0) Red Blood Count 3.94 x10^6/uL (3.50-5.40) Hemoglobin 11.4 g/dL (12.0-15.5) Hematocrit 34.0 % (36.0-47.0) Mean Corpuscular Volume 86 fL (79-100) Mean Corpuscular Hemoglobin 29 pg (25-35) Mean Corpuscular Hemoglobin Concent 33 g/dL (31-37) Red Cell Distribution Width 14.2 % (11.5-14.5) Platelet Count 211 x10^3/uL (140-400) Sodium Level 138 mmol/L (136-145) Potassium Level 2.6 mmol/L (3.5-5.1) Chloride Level 102 mmol/L (98-107) Carbon Dioxide Level 29 mmol/L (21-32) Anion Gap 7 (6-14) Blood Urea Nitrogen 16 mg/dL (7-20) Creatinine 0.8 mg/dL (0.6-1.0) Estimated GFR (Cockcroft-Gault) 69.2 BUN/Creatinine Ratio 20 (6-20) Glucose Level 103 mg/dL (70-99) Calcium Level 8.2 mg/dL (8.5-10.1) Total Bilirubin 0.6 mg/dL (0.2-1.0) Aspartate Amino Transf (AST/SGOT) 42 U/L (15-37) Alanine Aminotransferase (ALT/SGPT) 27 U/L (14-59) Alkaline Phosphatase 62 U/L (46-116) Total Protein 5.7 g/dL (6.4-8.2) Albumin 2.8 g/dL (3.4-5.0) Albumin/Globulin Ratio 1.0 (1.0-1.7) Urine Collection Type Unknown Urine Color Rachel Urine Clarity Clear Urine pH 7.0 (<5.0-8.0) Urine Specific [place] >=1.030 (1.000-1.030) Urine Protein Negative mg/dL (NEG-TRACE) Urine Glucose (UA) Negative mg/dL (NEG) Urine Ketones (Stick) Negative mg/dL (NEG) Urine Blood Negative (NEG) Urine Nitrite Negative (NEG) Urine Bilirubin Small (NEG) Urine Urobilinogen Dipstick 1.0 mg/dL (0.2 mg/dL) Urine Leukocyte Esterase Small (NEG) Urine RBC 0 /HPF (0-2) Urine WBC 5-10 /HPF (0-4) Urine Squamous Epithelial Cells Few /LPF Urine Bacteria Moderate /HPF (0-FEW) Test 09/24/19 10:53 Heparin Anti-Xa Act, Unfractionated 0.65 IU/mL (0.30-0.70) Comment Review of Relevant I have reviewed the following items huong (where applicable) has been applied. Labs Laboratory Tests Test 09/23/19 04:50 09/23/19 13:55 09/23/19 16:55 09/23/19 21:20 White Blood Count 9.3 x10^3/uL (4.0-11.0) 9.8 x10^3/uL (4.0-11.0) Red Blood Count 4.00 x10^6/uL (3.50-5.40) 4.18 x10^6/uL (3.50-5.40) Hemoglobin 11.7 g/dL (12.0-15.5) 12.2 g/dL (12.0-15.5) Hematocrit 35.1 % (36.0-47.0) 36.0 % (36.0-47.0) Mean Corpuscular Volume 88 fL (79-100) 86 fL (79-100) Mean Corpuscular Hemoglobin 29 pg (25-35) 29 pg (25-35) Mean Corpuscular Hemoglobin Concent 33 g/dL (31-37) 34 g/dL (31-37) Red Cell Distribution Width 14.1 % (11.5-14.5) 14.2 % (11.5-14.5) Platelet Count 216 x10^3/uL (140-400) 240 x10^3/uL (140-400) Neutrophils (%) (Auto) 75 % (31-73) Lymphocytes (%) (Auto) 18 % (24-48) Monocytes (%) (Auto) 6 % (0-9) Eosinophils (%) (Auto) 0 % (0-3) Basophils (%) (Auto) 1 % (0-3) Neutrophils # (Auto) 7.0 x10^3/uL (1.8-7.7) Lymphocytes # (Auto) 1.6 x10^3/uL (1.0-4.8) Monocytes # (Auto) 0.6 x10^3/uL (0.0-1.1) Eosinophils # (Auto) 0.0 x10^3/uL (0.0-0.7) Basophils # (Auto) 0.1 x10^3/uL (0.0-0.2) Sodium Level 142 mmol/L (136-145) Potassium Level 3.0 mmol/L (3.5-5.1) Chloride Level 103 mmol/L (98-107) Carbon Dioxide Level 29 mmol/L (21-32) Anion Gap 10 (6-14) Blood Urea Nitrogen 22 mg/dL (7-20) Creatinine 0.9 mg/dL (0.6-1.0) Estimated GFR (Cockcroft-Gault) 60.4 Glucose Level 109 mg/dL (70-99) Calcium Level 8.6 mg/dL (8.5-10.1) Magnesium Level 2.0 mg/dL (1.8-2.4) Troponin I Quantitative 4.527 ng/mL (0.000-0.055) Triglycerides Level 69 mg/dL (0-150) Cholesterol Level 188 mg/dL (0-200) LDL Cholesterol, Calculated 105 mg/dL (0-100) VLDL Cholesterol, Calculated 14 mg/dL (0-40) Non-HDL Cholesterol Calculated 119 mg/dL (0-129) HDL Cholesterol 69 mg/dL (40-60) Cholesterol/HDL Ratio 2.7 Thyroid Stimulating Hormone (TSH) 0.865 uIU/mL (0.358-3.74) Prothrombin Time 13.6 SEC (11.7-14.0) Prothromb Time International Ratio 1.1 (0.8-1.1) Coronavirus (COVID-19)(PCR) Negative (NEGATIVE) Heparin Anti-Xa Act, Unfractionated 0.23 IU/mL (0.30-0.70) Test 09/24/19 05:05 09/24/19 06:10 09/24/19 10:53 White Blood Count 10.2 x10^3/uL (4.0-11.0) Red Blood Count 3.94 x10^6/uL (3.50-5.40) Hemoglobin 11.4 g/dL (12.0-15.5) Hematocrit 34.0 % (36.0-47.0) Mean Corpuscular Volume 86 fL (79-100) Mean Corpuscular Hemoglobin 29 pg (25-35) Mean Corpuscular Hemoglobin Concent 33 g/dL (31-37) Red Cell Distribution Width 14.2 % (11.5-14.5) Platelet Count 211 x10^3/uL (140-400) Heparin Anti-Xa Act, Unfractionated 0.40 IU/mL (0.30-0.70) 0.65 IU/mL (0.30-0.70) Sodium Level 138 mmol/L (136-145) Potassium Level 2.6 mmol/L (3.5-5.1) Chloride Level 102 mmol/L (98-107) Carbon Dioxide Level 29 mmol/L (21-32) Anion Gap 7 (6-14) Blood Urea Nitrogen 16 mg/dL (7-20) Creatinine 0.8 mg/dL (0.6-1.0) Estimated GFR (Cockcroft-Gault) 69.2 BUN/Creatinine Ratio 20 (6-20) Glucose Level 103 mg/dL (70-99) Calcium Level 8.2 mg/dL (8.5-10.1) Total Bilirubin 0.6 mg/dL (0.2-1.0) Aspartate Amino Transf (AST/SGOT) 42 U/L (15-37) Alanine Aminotransferase (ALT/SGPT) 27 U/L (14-59) Alkaline Phosphatase 62 U/L (46-116) Total Protein 5.7 g/dL (6.4-8.2) Albumin 2.8 g/dL (3.4-5.0) Albumin/Globulin Ratio 1.0 (1.0-1.7) Urine Collection Type Unknown Urine Color Rachel Urine Clarity Clear Urine pH 7.0 (<5.0-8.0) Urine Specific [place] >=1.030 (1.000-1.030) Urine Protein Negative mg/dL (NEG-TRACE) Urine Glucose (UA) Negative mg/dL (NEG) Urine Ketones (Stick) Negative mg/dL (NEG) Urine Blood Negative (NEG) Urine Nitrite Negative (NEG) Urine Bilirubin Small (NEG) Urine Urobilinogen Dipstick 1.0 mg/dL (0.2 mg/dL) Urine Leukocyte Esterase Small (NEG) Urine RBC 0 /HPF (0-2) Urine WBC 5-10 /HPF (0-4) Urine Squamous Epithelial Cells Few /LPF Urine Bacteria Moderate /HPF (0-FEW) Laboratory Tests Test 09/23/19 16:55 09/23/19 21:20 7/15/20 05:05 09/24/19 06:10 Coronavirus (COVID-19)(PCR) Negative (NEGATIVE) Heparin Anti-Xa Act, Unfractionated 0.23 IU/mL (0.30-0.70) 0.40 IU/mL (0.30-0.70) White Blood Count 10.2 x10^3/uL (4.0-11.0) Red Blood Count 3.94 x10^6/uL (3.50-5.40) Hemoglobin 11.4 g/dL (12.0-15.5) Hematocrit 34.0 % (36.0-47.0) Mean Corpuscular Volume 86 fL (79-100) Mean Corpuscular Hemoglobin 29 pg (25-35) Mean Corpuscular Hemoglobin Concent 33 g/dL (31-37) Red Cell Distribution Width 14.2 % (11.5-14.5) Platelet Count 211 x10^3/uL (140-400) Sodium Level 138 mmol/L (136-145) Potassium Level 2.6 mmol/L (3.5-5.1) Chloride Level 102 mmol/L (98-107) Carbon Dioxide Level 29 mmol/L (21-32) Anion Gap 7 (6-14) Blood Urea Nitrogen 16 mg/dL (7-20) Creatinine 0.8 mg/dL (0.6-1.0) Estimated GFR (Cockcroft-Gault) 69.2 BUN/Creatinine Ratio 20 (6-20) Glucose Level 103 mg/dL (70-99) Calcium Level 8.2 mg/dL (8.5-10.1) Total Bilirubin 0.6 mg/dL (0.2-1.0) Aspartate Amino Transf (AST/SGOT) 42 U/L (15-37) Alanine Aminotransferase (ALT/SGPT) 27 U/L (14-59) Alkaline Phosphatase 62 U/L (46-116) Total Protein 5.7 g/dL (6.4-8.2) Albumin 2.8 g/dL (3.4-5.0) Albumin/Globulin Ratio 1.0 (1.0-1.7) Urine Collection Type Unknown Urine Color Rachel Urine Clarity Clear Urine pH 7.0 (<5.0-8.0) Urine Specific [place] >=1.030 (1.000-1.030) Urine Protein Negative mg/dL (NEG-TRACE) Urine Glucose (UA) Negative mg/dL (NEG) Urine Ketones (Stick) Negative mg/dL (NEG) Urine Blood Negative (NEG) Urine Nitrite Negative (NEG) Urine Bilirubin Small (NEG) Urine Urobilinogen Dipstick 1.0 mg/dL (0.2 mg/dL) Urine Leukocyte Esterase Small (NEG) Urine RBC 0 /HPF (0-2) Urine WBC 5-10 /HPF (0-4) Urine Squamous Epithelial Cells Few /LPF Urine Bacteria Moderate /HPF (0-FEW) Test 09/24/19 10:53 Heparin Anti-Xa Act, Unfractionated 0.65 IU/mL (0.30-0.70) Medications Current Medications Diltiazem HCl 125 mg/Sodium Chloride 125 ml @ 5 mls/hr CONT PRN IV SEE I/O RECORD; Start 09/23/19 at 02:00 Hydralazine HCl (Apresoline Inj) 10 mg PRN Q6HRS PRN IVP ELEVATED BP, SEE COMMENTS Last administered on 09/24/19at 10:22; Start 09/23/19 at 02:00 Lorazepam (Ativan Inj) 1 mg PRN Q4HRS PRN IVP ANXIETY / AGITATION Last administered on 09/23/19at 17:57; Start 09/23/19 at 02:00; Stop 09/23/19 at 19:4 6; Status DC Metoprolol Tartrate (Lopressor) 100 mg DAILY PO Last administered on 09/23/19at 11:11; Start 09/23/19 at 09:00 Lisinopril (Prinivil) 20 mg DAILY PO Last administered on 09/23/19at 11:06; Start 09/23/19 at 09:00 Chlorthalidone (Thalitone) 25 mg DAILY PO ; Start 09/23/19 at 09:00; Stop 09/24/19 at 09:22; Status DC Atorvastatin Calcium (Lipitor) 5 mg HS PO ; Start 09/23/19 at 21:00; Stop 09/24/19 at 15:13; Status DC Potassium Chloride (Klor-Con) 40 meq 1X ONCE PO ; Start 09/23/19 at 09:15; St op 7/14/20 at 09:23; Status DC Aspirin (Ecotrin) 81 mg DAILYWBKFT PO Last administered on 09/23/19at 11:30; Start 09/23/19 at 11:30; Stop 09/24/19 at 15:13; Status DC Lidocaine HCl (Xylocaine-Mpf 1% 2ml Vial) 2 ml STK-MED ONCE .ROUTE ; Start 09/23/19 at 13:07; Stop 09/23/19 at 13:32; Status DC Heparin Sodium/ Sodium Chloride 500 ml @ As Directed STK-MED ONCE .ROUTE ; Start 09/23/19 at 13:07; Stop 09/23/19 at 13:32; Status DC Iohexol (Omnipaque 300 Mg/ml) 100 ml STK-MED ONCE .ROUTE ; Start 09/23/19 at 1 3:07; Stop 09/23/19 at 13:32; Status DC Fentanyl Citrate (Fentanyl 2ml Vial) 100 mcg STK-MED ONCE .ROUTE ; Start 09/23/19 at 13:35; Stop 09/23/19 at 13:35; Status DC Midazolam HCl (Versed) 2 mg STK-MED ONCE .ROUTE ; Start 09/23/19 at 13:35; Stop 09/23/19 at 13:35; Status DC Heparin Sodium (Porcine) (Heparin Sodium) 10,000 unit STK-MED ONCE .ROUTE ; Start 09/23/19 at 13:35; Stop 09/23/19 at 13:35; Status DC Verapamil HCl (Verapamil) 5 mg STK-MED ONCE .ROUTE ; Start 09/23/19 at 13:35; Stop 09/23/19 at 13:35; Status DC Nitroglycerin (Nitroglycerin) 200 mcg STK-MED ONCE .ROUTE ; Start 09/23/19 at 13:35; Stop 09/23/19 at 13:35; Status DC Iohexol (Omnipaque 300 Mg/ml) 100 ml STK-MED ONCE .ROUTE ; Start 09/23/19 at 14:06; Stop 09/23/19 at 14:06; Status DC Nitroglycerin (Nitroglycerin) 200 mcg 1X ONCE IART Last administered on 09/23/19at 14:15; Start 09/23/19 at 14:15; Stop 09/23/19 at 14:22; Status DC Verapamil HCl (Verapamil) 2.5 mg 1X ONCE IART Last administered on 09/23/19at 14:15; Start 09/23/19 at 14:15; Stop 09/23/19 at 14:22; Status DC Heparin Sodium (Porcine) (Heparin Sodium) 2,500 unit 1X ONCE IART Last administered on 09/23/19at 14:15; Start 09/23/19 at 14:15; Stop 09/23/19 at 14:22; Status DC Heparin Sodium/ Sodium Chloride (HEPARIN for ARTERIAL LINE FLUSH) 1,000 unit 1X ONCE IART Last administered on 09/23/19at 14:15; Start 09/23/19 at 14:15; Stop 09/23/19 at 14:22; Status DC Heparin Sodium/ Sodium Chloride (HEPARIN for ARTERIAL LINE FLUSH) 1,000 unit 1X ONCE IART Last administered on 09/23/19at 14:15; Start 09/23/19 at 14:15; Stop 09/23/19 at 14:22; Status DC Midazolam HCl (Versed) 2 mg 1X ONCE IV Last administered on 09/23/19at 14:15; Start 09/23/19 at 14:15; Stop 09/23/19 at 14:22; Status DC Fentanyl Citrate (Fentanyl 2ml Vial) 100 mcg 1X ONCE IV Last administered on 09/23/19at 14:15; Start 09/23/19 at 14:15; Stop 09/23/19 at 14:22; Status DC Iohexol (Omnipaque 300 Mg/ml) 100 ml 1X ONCE IART Last administered on 09/23/19at 14:15; Start 09/23/19 at 14:15; Stop 09/23/19 at 14:22; Status DC Lidocaine HCl (Xylocaine-Mpf 1% 2ml Vial) 2 ml 1X ONCE INJ Last administered on 09/23/19at 14:15; Start 09/23/19 at 14:15; Stop 09/23/19 at 14:22; Status DC Info (CONTRAST GIVEN -- Rx MONITORING) 1 each PRN DAILY PRN MC SEE COMMENTS; Start 09/23/19 at 14:30; Stop 09/25/19 at 14:29 Heparin Sodium/ Dextrose 250 ml @ 10 mls/hr CONT PRN IV PER PROTOCOL Last administered on 09/24/19at 15:43; Start 09/23/19 at 14:30 Heparin Sodium (Porcine) (Heparin Sodium) 2,500 unit PRN Q6HRS PRN IV FOR UFH LEVEL LESS THAN 0.2; Start 09/23/19 at 14:30 Sodium Chloride (Normal Saline Flush) 3 ml QSHIFT PRN IV AFTER MEDS AND BLOOD DRAWS; Start 09/23/19 at 14:30 Ibuprofen (Motrin) 200 mg PRN Q6HRS PRN PO INFLAMMATION Last administered on 09/23/19at 16:18; Start 09/23/19 at 16:15 Acetaminophen (Tylenol) 650 mg PRN Q6HRS PRN PO MILD PAIN 1-3; Start 09/23/19 at 16:15 Potassium Chloride/Water 100 ml @ 100 mls/hr Q1H IV Last administered on 09/23/19at 19:52; Start 09/23/19 at 17:00; Stop 09/23/19 at 18:59; Status DC Haloperidol Lactate (Haldol Inj) 5 mg 1X ONCE IVP Last administered on 09/23/19at 19:00; Start 09/23/19 at 18:30; Stop 09/23/19 at 18:31; Status DC Lorazepam (Ativan Inj) 2 mg 1X ONCE IVP Last administered on 09/23/19at 19:01; Start 09/23/19 at 19:00; Stop 09/23/19 at 19:02; Status DC Haloperidol Lactate (Haldol Inj) 2 mg 1X ONCE IVP Last administered on 09/23/19at 19:01; Start 09/23/19 at 19:00; Stop 09/23/19 at 19:02; Status DC Lorazepam (Ativan Inj) 2 mg PRN Q2HRS PRN IVP ANXIETY / AGITATION Last adminis tered on 09/24/19at 01:18; Start 09/23/19 at 19:45 Potassium Chloride/Water 100 ml @ 100 mls/hr Q1H IV Last administered on 09/09 07/29at 15:42; Start 09/24/19 at 11:00; Stop 09/24/19 at 16:59 Atorvastatin Calcium (Lipitor) 40 mg HS PO ; Start 09/24/19 at 21:00 Active Scripts Active Reported Lisinopril 20 Mg Tablet 1 Tab PO DAILY Chlorthalidone 50 Mg Tablet 25 Mg PO DAILY Pravastatin Sodium 20 Mg Tablet 1 Tab PO HS Metoprolol Tartrate 100 Mg Tablet 1 Tab PO DAILY Vitals/I & O Vital Sign - Last 24 Hours 09/23/19 09/23/19 09/23/19 09/23/19 17:00 18:00 19:00 20:00 Temp 98.3 98.3 Pulse 80 90 93 100 Resp 24 49 23 39 B/P (MAP) 115/73 (87) 153/89 (110) 131/86 (101) 170/92 (118) Pulse Ox 96 97 94 100 O2 Delivery Nasal Cannula Nasal Cannula Room Air Room Air O2 Flow Rate 2.0 2.0 09/23/19 09/23/19 09/23/19 09/23/19 20:00 21:00 22:00 23:00 Pulse 76 78 96 Resp 21 29 B/P (MAP) 120/69 (86) 148/82 (104) 164/102 (122) Pulse Ox 92 95 98 O2 Delivery Room Air Room Air Room Air Room Air 09/24/19 09/24/19 09/24/19 09/24/19 00:00 00:00 01:00 02:00 Temp 99.3 99.3 Pulse 98 98 79 Resp 25 27 B/P (MAP) 165/96 (119) 168/105 (126) 101/57 (72) Pulse Ox 97 97 92 O2 Delivery Room Air Room Air Room Air Room Air 09/24/19 09/24/19 09/24/19 09/24/19 03:00 04:00 04:00 05:00 Temp 98.8 98.8 Pulse 81 75 76 Resp 24 28 B/P (MAP) 113/72 (86) 100/52 (68) 106/67 (80) Pulse Ox 96 96 99 O2 Delivery Room Air Room Air Room Air Room Air 09/24/19 09/24/19 09/24/19 09/24/19 06:00 07:00 08:00 08:00 Temp 99.6 99.6 Pulse 79 91 92 Resp 28 30 B/P (MAP) 134/74 (94) 140/84 (102) 160/87 (111) Pulse Ox 96 100 97 O2 Delivery Room Air Room Air Room Air Room Air 09/24/19 09/24/19 09/24/19 09/24/19 09:00 10:00 10:22 11:00 Pulse 87 87 85 84 Resp 30 22 30 B/P (MAP) 132/83 (99) 179/98 (125) 179/98 141/79 (99) Pulse Ox 98 94 97 O2 Delivery Room Air Room Air Room Air 09/24/19 09/24/19 09/24/19 09/24/19 12:00 12:00 13:00 14:00 Temp 98.9 98.9 Pulse 93 92 96 Resp 26 26 30 B/P (MAP) 144/98 (113) 156/102 (120) 144/100 (115) Pulse Ox 100 97 100 O2 Delivery Room Air Room Air Room Air Room Air 09/24/19 15:00 Pulse 93 Resp 32 B/P (MAP) 165/108 (127) Pulse Ox 97 O2 Delivery Room Air Intake and Output 09/23/19 09/23/19 09/24/19 15:00 23:00 07:00 Intake Total 164 ml Output Total 710 ml 540 ml Balance -710 ml -376 ml Justicifation of Admission Dx: Justifications for Admission: Justification of Admission Dx: Yes Angina: Symp at Rest AKIN HUNTER MD Sep 24, 2019 16:38
[2019-09-24] MEDS ORDERED: ATORVASTATIN CALCIUM 10 MG TABLET. PO SCH (21:00)
== END 2019-09-24 16:00 | disposition short-term general hospital (02) | DRG 280 ==
LOC: 1 WEST ICU 09-23 00:32
PROVIDERS: ADMIT Internal Medicine; ATTEND Internal Medicine
PROC: 4A023N7 Measurement of Cardiac Sampling and Pressure, Left Heart, Percutaneous Approach (ICD-10-PCS; principal; 2019-09-23)
PROC: B2111ZZ Fluoroscopy of Multiple Coronary Arteries using Low Osmolar Contrast (ICD-10-PCS; 2019-09-23)
DX: I21.4 Non-ST elevation (NSTEMI) myocardial infarction (principal); G93.41 Metabolic encephalopathy; E78.5 Hyperlipidemia, unspecified; E87.6 Hypokalemia; I11.0 Hypertensive heart disease with heart failure; I16.0 Hypertensive urgency; I25.119 Atherosclerotic heart disease of native coronary artery with unspecified angina pectoris; I25.5 Ischemic cardiomyopathy; I48.0 Paroxysmal atrial fibrillation; I50.9 Heart failure, unspecified; I71.2 Thoracic aortic aneurysm, without rupture; Z82.3 Family history of stroke; Z82.49 Family history of ischemic heart disease and other diseases of the circulatory system; Z20.828 Contact with and (suspected) exposure to other viral communicable diseases
CPT/HCPCS: 36415; 70450; 80048; 80053; 80061; 81001; 83735; 84443; 84484; 85025; 85027; 85520; 85610; 87086; 93306; 93458; 93880; 93970; 99152; 99153; C1769; C1892; J0360; J1630; J1644; J2060; J2250; J3010; J3480; J3490; Q9967; G0378; U0003-CS

== ENCOUNTER → 2021-02-10 | Outpatient (CLI) | payer MEDICARE ==
[2019-09-24 15:00] VITALS: BP 165/108
[~2021-02-10] MED LIST changes: +CHLO50TA PO; -HYDR50TA6 PO; +HYDR50TA9 PO; +LISI20TA18 PO
--- NOTE | 2021-02-11 10:36 | CARD ---
MR#: [id number] Date of Study: 02/10/2021 Ordering Physician: ABEL FERNANDEZ, Referring Physician: ABEL FERNANDEZ, Tech: Monika Melton [facility] APPROVED REPORT EXAM: Two-dimensional and M-mode echocardiogram with Doppler and color Doppler. Other Information Quality : AverageHR: 55bpm INDICATION Cardiac Disease: CAD Surgery/Intervention CABG: Date: 2019 Site: [facility] RISK FACTORS Hypertension Hyperlipidemia 2D DIMENSIONS RVDd3.8 (2.9-3.5cm)Left Atrium(2D)3.1 (1.6-4.0cm) IVSd1.1 (0.7-1.1cm)Aortic Root(2D)3.4 (2.0-3.7cm) LVDd4.7 (3.9-5.9cm)LVOT Diameter2.1 (1.8-2.4cm) PWd1.2 (0.7-1.1cm)LVDs2.9 (2.5-4.0cm) FS (%) 38.2 %SV70.9 ml Aortic Valve AoV Peak Ethan.154.8cm/sAoV VTI35.4cm AO Peak GR.9.6mmHgLVOT Peak Ethan.78.9cm/s LVOT VTI 18.91cmAO Mean GR.5mmHg ZACH (VMAX)1.82jz1GIM (VTI)1.77cm2 Mitral Valve MV E Jsndlqlt52.5cm/sMV DECEL ULPZ118le MV A Vhrhoawf95.3cm/sMV E Mean Gr.2mmHg MV NFW00drJ/A Ratio1.1 MVA (PHT)2.57cm2 TDI E/Lateral E'8.8E/Medial E'14.4 Pulmonary Valve PV Peak Xnrdehgh96.3cm/sPV Peak Grad.4mmHg Tricuspid Valve TR P. [id number]/sRAP EYEGPLMA2knEf TR Peak Gr.62bmFmWYIF31jeXm LEFT VENTRICLE The left ventricle is normal size. There is mild concentric left ventricular hypertrophy. The left ve ntricular systolic function is normal and the ejection fraction is within normal range. The Ejection Fraction is 50-55%. There is normal LV segmental wall motion. Transmitral Doppler flow pattern is Gra de II-pseudonormal filling dynamics. RIGHT VENTRICLE The right ventricle is normal size. There is normal right ventricular wall thickness. The right ventr icular systolic function is normal. ATRIA The left atrium is borderline dilated. The right atrium is borderline dilated. The interatrial septum is intact with no evidence for an atrial septal defect or patent foramen ovale as noted on 2-D or Do ppler imaging. AORTIC VALVE The aortic valve is calcified but opens well. Doppler and Color Flow revealed trace aortic regurgitat ion. There is no significant aortic valvular stenosis. Calculated aortic valve area is 2.12 cm2 with maximum pressure gradient of 13 mmHg and mean pressure gradient of 6 mmHg. MITRAL VALVE The mitral valve is normal in structure and function. There is no evidence of mitral valve prolapse. There is no mitral valve stenosis. Doppler and Color-flow revealed trace mitral regurgitation. TRICUSPID VALVE The tricuspid valve is normal in structure and function. Doppler and Color Flow revealed trace tricus pid regurgitation with an estimated PAP of 34 mmHg. There is no tricuspid valve stenosis. PULMONIC VALVE The pulmonic valve is not well visualized. Doppler and Color Flow revealed trace pulmonic valvular re gurgitation. GREAT VESSELS The aortic root is normal in size. 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 The IVC is n ormal in size and collapses >50% with inspiration. PERICARDIAL EFFUSION There is no evidence of significant pericardial effusion. Critical Notification Critical Value: No <Conclusion> The left ventricle is normal size. The left ventricular systolic function is normal and the ejection fraction is within normal range. The Ejection Fraction is 50-55%. There is mild concentric left ventricular hypertrophy. Doppler and Color Flow revealed trace aortic regurgitation. There is no significant aortic valvular stenosis. Doppler and Color-flow revealed trace mitral regurgitation. Doppler and Color Flow revealed trace tricuspid regurgitation with an estimated PAP of 34 mmHg. 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 Signed by : Sherif Ortiz MD Electronically Approved : 02/11/2021 10:35:36
== END ==
LOC: ECHO 10:42
PROVIDERS: ATTEND Internal Medicine Cardiovascular Disease
DX: I35.1 Nonrheumatic aortic (valve) insufficiency (principal); I51.7 Cardiomegaly; I25.10 Atherosclerotic heart disease of native coronary artery without angina pectoris; Z95.1 Presence of aortocoronary bypass graft
CPT/HCPCS: 93306